=== PATIENT | female | born 1945 | race Caucasian/White ===

== ENCOUNTER 2020-03-28 15:18 | Emergency (ER) | payer OTHER ==
[~2020-03-28] VITALS: Ht 160 cm; Wt 59.0 kg
[2020-03-28] MEDS ORDERED: ENALAPRIL MALEA20 MG PO (16:13)
[2020-03-28] MEDS ORDERED: SYNTHROID50 MCG PO (16:14)
[2020-03-28] MEDS ORDERED: SIMVASTATIN5 MG PO (16:15)
== END 2020-03-28 19:20 | disposition home or self-care (01) ==
LOC: ER 15:18
DX: K59.09 Other constipation (principal)